=== PATIENT | female | born 1995 | race Caucasian/White ===

== ENCOUNTER → 2018-09-13 | Outpatient (CLI) | payer SELFPAY | LOC: FIMAGING 06:54 | PROVIDERS: ATTEND Advanced Practice Midwife | DX: Z34.92 Encounter for supervision of normal pregnancy, unspecified, second trimester (principal); Z3A.25 25 weeks gestation of pregnancy ==

== ENCOUNTER 2018-10-25 19:46 | Observation (INO) | payer MEDICAID | END 2018-10-25 21:05 | disposition home or self-care (01) | LOC: FLD 19:46 | PROVIDERS: ADMIT Obstetrics & Gynecology; ATTEND Obstetrics & Gynecology | DX: Z03.89 Encounter for observation for other suspected diseases and conditions ruled out (principal); Z3A.31 31 weeks gestation of pregnancy ==